=== PATIENT | male | born 1945 | race Caucasian/White ===

== ENCOUNTER → 2020-11-03 | Outpatient (CLI) | payer SELFPAY ==
[~2020-11-03] MED LIST: APIX5TAB3 PO; DILTIAZEM PO
== END ==
LOC: EDBD 09:45 → LAB 09:45
PROVIDERS: ATTEND Nurse Anesthetist, Certified Registered
DX: Z01.812 Encounter for preprocedural laboratory examination (principal); Z20.822 Contact with and (suspected) exposure to COVID-19
CPT/HCPCS: U0003

== ENCOUNTER → 2020-11-05 | Day surgery (SDC) | payer MEDICARE, OTHER ==
[~2020-11-05] MED LIST changes: +IPRATRPIUM/ALBUTEROL 0.5/2.5MG 3 ML NEBU. NEB PRN; +IV RINGERS SOLUTION,LACTATED 1,000 ML IV SCH; +LIDOCAINE 2% PF 5 ML VIAL. ONE; +MIDAZOLAM HCL PF 2 MG/2 ML VIAL. IV ONE; +ONDANSETRON PF 4 MG/2 ML VIAL. IV PRN; +PROPOFOL 10,000 MCG/ML (20ML) VIAL IV ONE
[2020-11-05 13:03] VITALS: BP 119/56
--- NOTE | 2020-11-10 15:08 | PATHOLOGY ---
[facility] Accession Number: [id number] . 01 Material submitted: . PART A: colon - DESCENDING COLON POLYP HOT SNARE. Modifiers: descending PART B: colon - TRANSVERSE COLON POLYP BIOPSY. Modifiers: transverse . 01 Clinical history: . COLONOSCOPY . 02 Diagnosis: A. Colon biopsies, descending colon polyp: - Tubular adenoma. . B. Colon biopsy, transverse colon polyp: - Hyperplastic polyp. (JPM:mark; 11/10/2020) S 11/10/2020 0839 Local . 02 Comment: There is no high grade dysplasia or evidence of malignancy. (JPM:mark; 11/10/2020) . 02 Electronically signed: . Irineo Ugalde MD, Pathologist NPI- [id number] . 01 Gross description: . A. The specimen is received in formalin, labeled "Boy Carrillo, descending colon polyp hot snare" and consists of 2 segments of silva tissue measuring 0.4 x 0.3 x 0.2 cm and 0.6 x 0.6 x 0.3 cm. The larger is inked and bisected and they are entirely submitted in A1. . B. The specimen is received in formalin, labeled "Boy Carrillo, transverse colon polyp BX" and consists of a fragment of pink tissue measuring 0.2 x 0.2 cm which is entirely submitted in B1. (SDY; 11/09/2020) SYU/SYU 11/09/2020 1224 Local . 02 Pathologist provided ICD-10: D12.2, K63.5 . 02 CPT . 794586, [id number] Specimen Comment: Report sent to / Performed at: [address], [place], [place] [id number] MD Jefry Mcdowell MD Phone: [phone] Performed at: [address] [id number] MD Irineo Ugalde MD Phone: [phone]
== END | disposition home or self-care (01) ==
LOC: EDBD → SURG 10:31 → EDUNIT# 11:30
PROVIDERS: ATTEND Internal Medicine Gastroenterology
DX: Z12.11 Encounter for screening for malignant neoplasm of colon (principal); D12.4 Benign neoplasm of descending colon; K64.0 First degree hemorrhoids; K57.30 Diverticulosis of large intestine without perforation or abscess without bleeding; K63.89 Other specified diseases of intestine; I48.91 Unspecified atrial fibrillation; I10 Essential (primary) hypertension; E78.00 Pure hypercholesterolemia, unspecified; I49.9 Cardiac arrhythmia, unspecified; Z79.899 Other long term (current) drug therapy; Z98.890 Other specified postprocedural states
CPT/HCPCS: 45380; 45381; 45385; 88305; J2001; J2704; J7120